=== PATIENT | female | born 2000 | race Caucasian/White ===

== ENCOUNTER 2021-09-09 17:04 | Emergency (ER) | payer MEDICAID ==
[~2021-09-09] VITALS: Ht 172.7 cm; Wt 68.2 kg
[2021-09-09 17:15] VITALS: TEMP 97.7
[2021-09-09] MEDS ORDERED: REXULTI0.5 MG PO (17:18)
[2021-09-09] MEDS ORDERED: CYMBALTA 30MG30 MG PO (17:18)
[2021-09-09 17:41] LABS: BASO # 0.1 K/mm3 (0.0-0.2); BASO % 0.7 % (0.0-2.0); EOS # 0.1 K/mm3 (0.0-0.7); EOS % 0.8 % (0.0-4.0); GRAN # 5.6 K/mm3 (1.4-6.5); GRAN % 67.2 % (42.2-75.2); HEMATOCRIT 40.7 % (35.0-45.0); HEMOGLOBIN 13.8 g/dl (12.0-15.0); LYMPH # 2.2 K/mm3 (1.2-3.4); LYMPH % 26.9 % (20.0-51.0); MEAN CELL VOLUME 90 fl (80.0-95.0); MEAN CORPUSCULAR HEMOGLOBIN 31 pg (26-32); MEAN CORPUSCULAR HGB CONC 34 g/dl (33.0-37.0); MEAN PLATELET VOLUME 9.5 fl (7.4-10.4); MONO # 0.3 K/mm3 (0.1-0.6); PLATELET COUNT 287 K/mm3 (130-400); RED BLOOD COUNT 4.53 M/mm3 (4.10-5.30); REDCELL DISTRIBUTION WIDTH-CV 12.2 % (11.5-14.5)
[2021-09-09 18:00] LABS: ALANINE AMINOTRANSFERASE 9 U/L (0-55); ALBUMIN 4.3 gm/dL (3.5-5.0); ALKALINE PHOSPHATASE 46 U/L (40-150); ANION GAP 10 mmol/L (7-16); AST,SGOT 18 U/L (5-34); BLOOD UREA NITROGEN 6 mg/dL (8-21); CALCIUM 9.4 mg/dL (8.4-10.2); CARBON DIOXIDE 21 mmol/L (22-29); CHLORIDE 109 mmol/L (98-107); CREATININE, serum 0.76 mg/dL (0.57-1.11); GLUCOSE 96 mg/dL (70-99); POTASSIUM 3.8 mmol/L (3.5-4.5); SODIUM 140 mmol/L (136-145); TOTAL PROTEIN 7.4 gm/dL (6.2-8.1)
[2021-09-09 18:14] LABS: TROPONIN-I < 0.010 ng/mL (0.00-0.033)
[2021-09-09 18:49] VITALS: BP 119/86; PULSE 69
== END 2021-09-09 18:48 | disposition home or self-care (01) ==
LOC: COL.ER 17:04
PROVIDERS: Emergency Medicine
DX: F14.90 Cocaine use, unspecified, uncomplicated (principal); T45.0X2A Poisoning by antiallergic and antiemetic drugs, intentional self-harm, initial encounter; F17.210 Nicotine dependence, cigarettes, uncomplicated
CPT/HCPCS: J2060; J7030

== ENCOUNTER 2021-11-12 18:07 | Emergency (ER) | payer MEDICAID ==
[~2021-11-12] VITALS: Ht 172.7 cm; Wt 70.5 kg
[~2021-11-12 18:07] MED LIST: CYMBALTA 30MG30 MG PO; REXULTI0.5 MG PO
[2021-11-12 18:21] VITALS: TEMP 97.8
[2021-11-12 20:06] VITALS: BP 150/90; PULSE 87
== END 2021-11-12 20:06 | disposition home or self-care (01) ==
LOC: COL.ER 18:07
DX: F41.9 Anxiety disorder, unspecified (principal); Z79.899 Other long term (current) drug therapy

== ENCOUNTER 2024-05-18 12:26 | Emergency (ER) | payer OTHER ==
[~2024-05-18] VITALS: Ht 172.7 cm; Wt 81.8 kg
[2024-05-18 12:29] VITALS: TEMP 98.4
[2024-05-18 13:20] LABS: COLLECTION METHOD CLEAN CATCH
[2024-05-18 13:24] LABS: URINE APPEARANCE CLEAR (CLEAR/HAZY); URINE BLOOD NEGATIVE (NEGATIVE); URINE COLOR YELLOW (YELLOW); URINE GLUCOSE NEGATIVE (NEGATIVE); URINE KETONE NEGATIVE (NEGATIVE); URINE NITRATE NEGATIVE (NEGATIVE); URINE PROTEIN(semi-quant) NEGATIVE (NEGATIVE); URINE UROBILINOGEN 0.2 E.U/dL (0.2-1.0)
[2024-05-18 14:14] LABS: BASO # 0.1 K/mm3 (0.0-0.2); BASO % 0.6 % (0.0-2.0); EOS # 0.1 K/mm3 (0.0-0.7); EOS % 0.7 % (0.0-4.0); GRAN # 5.7 K/mm3 (1.4-6.5); HEMATOCRIT 41.2 % (37.0-47.0); HEMOGLOBIN 13.6 g/dl (12.5-16.0); LYMPH # 2.4 K/mm3 (1.2-3.4); LYMPH % 27.7 % (20.0-51.0); MEAN CELL VOLUME 90 fl (80.0-100.0); MEAN CORPUSCULAR HEMOGLOBIN 30 pg (27-31); MEAN CORPUSCULAR HGB CONC 33 g/dl (33.0-37.0); MEAN PLATELET VOLUME 10.2 fl (7.4-10.4); MONO # 0.4 K/mm3 (0.1-0.6); MONO % 4.7 % (1.7-9.3); PLATELET COUNT 234 K/mm3 (130-400); RED BLOOD COUNT 4.59 M/mm3 (4.10-5.30)
[2024-05-18 14:30] LABS: BILIRUBIN,TOTAL 0.5 mg/dL (0.2-1.2); CALCIUM 9.3 mg/dL (8.4-10.2); CREATININE, serum 0.8 mg/dL (0.57-1.11); POTASSIUM 4.1 mEq/L (3.5-4.5)
[2024-05-18] MEDS ORDERED: CEFTIN 250250 MG/TAB PO (14:39)
[2024-05-18 14:45] VITALS: BP 115/73; PULSE 78
== END 2024-05-18 14:45 | disposition home or self-care (01) ==
LOC: COL.ER 12:26
PROVIDERS: Family Medicine
DX: R30.0 Dysuria (principal)